=== PATIENT | female | born 1995 | race Caucasian/White ===

== ENCOUNTER 2016-08-28 17:03 | Emergency (ER) | payer OTHER ==
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
[~2016-08-28 17:03] MED LIST: BACTRIM DS TABL1 TA1 PO; COLACE PO; NO MEDICATIONS; PYRIDIUM100 MG PO
== END 2016-08-28 18:08 | disposition home or self-care (01) ==
LOC: SED 17:03
DX: S80.02XA Contusion of left knee, initial encounter (principal); E11.9 Type 2 diabetes mellitus without complications; Z88.1 Allergy status to other antibiotic agents; V49.40XA Driver injured in collision with unspecified motor vehicles in traffic accident, initial encounter; Y92.410 Unspecified street and highway as the place of occurrence of the external cause
CPT/HCPCS: 73562; 84703; 99283